=== PATIENT | male | born 2005 | race Caucasian/White ===

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

== ENCOUNTER 2025-01-15 16:18 | Emergency (ER) | payer OTHER ==
[~2025-01-15] VITALS: Ht 180.3 cm; Wt 59.9 kg
[~2025-01-15 16:18] MED LIST changes: +Robaxin750 MG PO
[2025-01-15 16:40] VITALS: BP 126/91
[2025-01-15] MEDS ORDERED: Ondansetron 4 MG SoluTab SL ONE (16:50)
== END 2025-01-15 18:21 | disposition home or self-care (01) ==
LOC: ER 16:18
DX: S06.0X0A Concussion without loss of consciousness, initial encounter (principal); Z79.899 Other long term (current) drug therapy; Z91.013 Allergy to seafood; V49.9XXA Car occupant (driver) (passenger) injured in unspecified traffic accident, initial encounter
CPT/HCPCS: 99283; A9270

== ENCOUNTER 2025-06-04 17:10 | Emergency (ER) | payer OTHER ==
[~2025-06-04] VITALS: Ht 180.3 cm; Wt 72.6 kg
[2025-06-04 17:20] VITALS: BP 148/85
== END 2025-06-04 20:17 | disposition home or self-care (01) ==
LOC: ER 17:10
DX: S01.01XA Laceration without foreign body of scalp, initial encounter (principal); M54.2 Cervicalgia; V00.131A Fall from skateboard, initial encounter; Z91.013 Allergy to seafood; Z79.899 Other long term (current) drug therapy
CPT/HCPCS: 70450; 72125; 90715; A9270

== ENCOUNTER 2025-06-14 09:14 | Emergency (ER) | payer OTHER ==
[~2025-06-14] VITALS: Ht 180.3 cm; Wt 56.7 kg
[2025-06-14 10:16] VITALS: BP 134/78
== END 2025-06-14 10:29 | disposition home or self-care (01) ==
LOC: ER 09:14
DX: S01.01XD Laceration without foreign body of scalp, subsequent encounter (principal); V00.131D Fall from skateboard, subsequent encounter; Z91.013 Allergy to seafood; Z79.899 Other long term (current) drug therapy; Z59.89 Other problems related to housing and economic circumstances
CPT/HCPCS: 99281